=== PATIENT | female | born 1965 | race Caucasian/White ===

== ENCOUNTER 2023-12-07 13:54 | Outpatient (AMB) | payer OTHER, SELFPAY ==
[2023-12-07 14:03] VITALS: BP 124/70; PULSE 76; O2SAT 96; BMI 28.3
--- NOTE | 2023-12-07 14:03 | MHC.OFFVIS ---
Intake Vital Signs 12/07/23 14:03 Height 5 ft 4 in Weight 165 lb BMI 28.3 BP 124/70 Blood Pressure Location Lt brachial Position Sitting Pulse 76 Pulse Source Pulse Oximeter Pulse Oximetry (%) 96 Oxygen Delivery Method Room Air Intake Visit Reasons: Asthma Human Resources Safety Manager Required: No Allergies No Known Allergies Allergy (Verified 12/07/23 14:06) HPI HPI Comments History of Present Illness Details The patient is a 58-year-old woman with a history of childhood asthma but then outgrew. She had been in her usual state health until the last few years when she has noticed some fullness or discomfort on her left side of her chest. it was mild to moderate severity. And weighs 1 there work could be affecting her breathing in addition to the discomfort. She had been evaluated by Dr. Dolan many years ago. Back in 2010 he had her on Symbicort which she responded well at the time. She also had a CT scan of the time demonstrating what appeared to be a cardiac fat pad that was more pronounced. Therefore in view of her discomfort she did have a repeat CT scan sometime in April 2022. It was noted that the fat pad was still present although not significantly changed. In addition to that she was found to have small subcentimeter pulmonary nodules and also found to have some thickening of the distal esophagus. Therefore she was referred to Gastroenterology and the patient will be undergoing endoscopy soon. In addition to that she did have pulmonary function studies which we personally reviewed together. This was done in May 2022. It appears that the patient has a mild obstructive ventilatory defect although bronchodilators were not used to see if this is a reversible obstruction. My suspicion is that it is based on her history in the past with Dr. Dolan. In addition to that the patient did have significant hyperinflation and air trapping likely also related to small airways disease. Explained to the patient that this increased hyperinflation and air trapping could result in that fullness sensation that she feels at times as her lungs are not completely deflated. The symptoms to get worse specially if she is exerting herself and increasing her respiratory rate therefore limiting her lung emptying time. In regards to the pulmonary nodules they are small and will need follow-up a year from her last CT scan sometime in April 2023. 12/07/2023 the patient is here for a pulmonary follow-up visit. Overall the patient has been doing well. Respiratory symptoms have been improved. She has been using the Symbicort with good effect. Has not had to use any prednisone or any other therapies. The patient did have a CT scan of the chest back in April 2023 which we personally reviewed. Appears that has stable pulmonary nodules and have not changed. Will benefit from following up for additional 1 year. In the meantime they did mention that if she does have a distal thickened esophagus. She denies any epigastric discomfort reflux disease. Although because of the abnormality which followed up with a barium swallow. Otherwise will follow-up with a CT scan in 1 year's time. If patient has any worsening symptoms she will call for an earlier evaluation [facility] Medical History (Updated 12/07/23 @ 14:24 by Jamie Christine MD) Esophageal thickening Asthma Pulmonary nodules Social History (Updated 12/07/23 @ 14:09 by BREANA Alvarez) Patient Tobacco Use Status: Never used Tobacco Review of Systems Const Denies fever(s) Eyes Denies change in vision ENT Denies change in voice and Denies throat swelling Card Denies chest pain and Denies palpitations Resp Reports cough GI Reports no additional complaints Musc Reports no additional complaints Skin/Breast Denies rash Endo Denies palpitations Samuel/Lymph Denies easy bleeding and Denies easy bruising Aller/Immun Denies throat swelling Physical Exam Vital Signs: Last Vital Signs Pulse 76 12/07/23 14:03 BP 124/70 12/07/23 14:03 Pulse Ox 96 12/07/23 14:03 Oxygen Delivery Method Room Air 12/07/23 14:03 BMI result Body Mass Index 28.3 Const General: comfortable HEENT Head: Yes normal to inspection Eyes General: appearance normal, both eyes and all related structures Neck Neck: Yes trachea midline and Yes supple Chest Chest palpation & inspection: normal inspection of the chest Resp Effort & Inspection: normal respiratory effort Auscultation: clear to auscultation bilaterally Cardio Rate: regular rate Rhythm: regular rhythm Heart sounds: S1 normal heart sound present and S2 normal heart sound present GI Auscultation: normal bowel sounds Skin General skin exam: no rashes or lesions noted Extrem General: Yes no clubbing, cyanosis or edema Assessment & Plan Assessment & Plan (1) Pulmonary nodules: Code(s): R91.8 - Other nonspecific abnormal finding of lung field (2) Asthma: Comment: although demonstrates some mild obstruction we do not have the post bronchodilator measurements. My suspicion is that she would have a reversible of obstruction consistent with asthma. Code(s): J45.909 - Unspecified asthma, uncomplicated Qualifiers: Asthma complication type: uncomplicated Asthma persistence: persistent Asthma severity: moderate Qualified Code(s): J45.40 - Moderate persistent asthma, uncomplicated (3) Esophageal thickening: Code(s): K22.89 - Other specified disease of esophagus Plan continue Symbicort CT chest in 1 year barium swallow F/U 1 year Orders: Orders [place] barium swallow 12/07/23 K21.9 - Gastro-esophageal reflux disease without esophagitis, K22.89 - Other specified disease of esophagus CT chest wo IV con 364 Days R91.8 - Other nonspecific abnormal finding of lung field Medications: Refilled budesonide-formoterol 160-4.5 mcg/actuation (Symbicort) 2 puffs inhalation BID 30 days 10.2 grams 11RF J44.9 - Chronic obstructive pulmonary disease, unspecified Coding Level of Care Code Est Pt Level 4 (08551) Diagnoses Pulmonary nodules R91.8 Moderate persistent asthma without complication J45.40 Asthma complication type: uncomplicated Asthma persistence: persistent Asthma severity: moderate Esophageal thickening K22.89 Time Spent (min) 17
== END 2023-12-07 14:30 | disposition home or self-care (01) ==
PROVIDERS: PCP Nurse Practitioner Family; Visit Provider Hospitalist
DX: R91.8 Other nonspecific abnormal finding of lung field (principal); J45.40 Moderate persistent asthma, uncomplicated; K22.89 Other specified disease of esophagus
CPT/HCPCS: 99214

== ENCOUNTER → 2023-12-07 13:54 | Outpatient (BNVA) | payer BC, SELFPAY | PROVIDERS: PCP Nurse Practitioner Family; Visit Provider Hospitalist ==

== ENCOUNTER 2024-11-04 07:04 | Outpatient (REF) | payer OTHER, SELFPAY ==
--- NOTE | ~2024-11-04 | CT_ITS ---
CLINICAL HISTORY: R91.8 - Other nonspecific abnormal finding of lung field CT chest without contrast Comparison: None Findings: The heart size is normal. Thyroid not well seen. No hilar or mediastinal adenopathy. No chest wall lesions or axillary. Mild circumferential distal esophageal wall thickening, nonspecific. Mild biapical scarring. No dense consolidation, pleural effusion or pneumothorax. 2 mm noncalcified left upper lobe pulmonary nodule along the fissure on image 92 of series 3, likely lymph. The upper abdomen is unremarkable. No acute fractures. IMPRESSION: 1. No acute cardiopulmonary disease. Tiny pulmonary nodule on the left is likely an intrapulmonary lymph node. 2. Mild circumferential wall thickening of the distal esophagus is nonspecific. Correlate for any signs or symptoms of esophagitis. This document has been electronically signed by: Samantha Ricardo MD on 11/04/2024 08:49:12
--- OUTSIDE RECORDS SUMMARY | 2024-11-04 07:08 | XMS_ITS | Clinical Summary ---
Author Organization [facility] [address] [facility] Address [address] [place] [address] Phone Care Team Providers Care Traffic Routing Engineer Name Role Phone [place], Amanda SYED Primary Care Provider Allergies No known active allergies Medications zolpidem (AMBIEN) 5 mg tablet Take 1 tablet (5 mg total) by mouth daily. Max Daily Amount: 5 mg 3 Active omeprazole (PriLOSEC) [address] capsule Take 20 mg by mouth 2 (two) times a day. Active losartan (COZAAR) 100 mg tablet Take 1 tablet (100 mg total) by mouth daily. 3 Active levothyroxine (SYNTHROID, LEVOTHROID) 125 mcg tablet Take 1 tablet (125 mcg total) by mouth daily. 4 07/23/20 25 Active icosapent ethyL (VASCEPA) 1 gram capsule TAKE 2 CAPSULES BY MOUTH IN THE MORNING AND 2 CAPSULES IN THE EVENING. TAKE WITH MEALS. 4 Active Wixela Inhub 250-50 mcg/dose diskus inhaler USE 1 INHALATION EVERY 12 HOURS FOR 30 DAYS 4 Active amLODIPine (NORVASC) 5 mg tablet Take 1 tablet (5 mg total) by mouth daily. 4 Active omeprazole (PriLOSEC) [address] capsuleIndicati ons:Pharyngoeso phageal dysphagia,Ineff ective esophageal motility Take 1 capsule (40 mg total) by mouth 2 (two) times a day. Do not crush or chew. 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 Encounters Date Type Department Care Team Description 10/08/2024 Telephone Gastroenterology - [address] [facility] [address] [place] [phone] Pretty Ponce MD 10/08/2024 Telephone Gastroenterology - [address] [facility] [address] [facility] [address] [place] [phone] Pretty Ponce MD 09/09/2024 Telephone Gastroenterology - [address] [phone] Pretty Ponce MD 08/26/2024 Telephone Gastroenterology - [address] [phone] Pretty Ponce MD from Last 3 Months Surgical History Surgery Date Site/Laterality Comments SECTION, LOW TRANSVERSE x4 HYSTERECTOMY Medical History Medical History Date Comments Hypertension Hypothyroid Lauren thyroiditis Emphysema lung ([facility]) Social History Tobacco Use Types Packs/Day Years Used Date Smoking Tobacco: Never Smokeless Tobacco: Never Tobacco Cessation:Counseling Given: Not Answered Alcohol Use Standard Drinks/Week Comments Not Asked 0 (1 standard drink = 0.6 oz pur e alcohol) social Comments Unknown Sex and Gender Information Value Date Recorded Sex Assigned at Not on file Legal Sex Female 1:38 PM EST Gender Identity Not on file Sexual Orientation Not on file Obstetrics History Last Filed Vital Signs Vital Sign Reading Time Taken Comments Blood Pressure - - Pulse - - Temperature - - Respiratory Rate - - Oxygen Saturation - - Inhaled Oxygen Concentration - - Weight 77.6 kg (171 lb) 07/31/2024 9:44 AM EST Height 162.6 cm (5' 4 ) 07/31/2024 9:44 AM EST Body Mass Index 29.35 07/31/2024 9:44 AM EST Plan of Treatment Upcoming Encounters Date Type Department Care Team (Late st Contact Info) Description 12/13/2024 12:30 PM EDT Appointment [facility] Endoscopy [address] [place] [phone] Pretty Ponce MD [address] [place] [phone] Health Maintenance Due Date Last Done Comments Hepatitis A Vaccines (1 of 2 - Risk 2-dose series) 1983 Pneumococcal Vaccine: 50+ Years (1 of 2 - PCV) 1983 Pneumococcal Vaccine: Pediatrics (0 to 5 Years) and At-Risk Patients (6 to 64 Years) (1 of 2 - PCV) 1983 Cervical Cancer Screening: Pap Smear 1985 HIV Screening 08/02/2022 Hepatitis C Screening 08/02/2022 Social Influencers of Health Screening 08/02/2022 COVID-19 Vaccine ( season) 2024 08/13/2021, 01/28/2021, 01/06/2021 Influenza Vaccine (#1) 2024 05/12/2021, 2019 Hepatitis B Vaccines (1 of 3 - Risk 3-dose series) 2024 RSV Immunization Patients 60+ Years Old (1 - Risk 60-74 years 1-dose series) 2024 Hypertension/CHF/CAD Annual BMP Blood Test 07/31/2024 Depression Screening 07/23/2025 07/23/2024 Breast Cancer Screening 09/18/2025 09/18/19 24, 09/24/2021, 08/25/2020, Additional history exists Cholesterol Screening (Lipid Panel) 07/16/2029 07/16/2024 DTaP,Tdap,and Td Vaccines (4 - Td or Tdap) 05/01/2034 05/01/2024, 12/15/2016, 07/21/2015 Colorectal Cancer Screening: Colonoscopy 08/09/2034 08/09/2024 Zoster Vaccines Completed 05/01/2024, 03/05, 11/21/2017 HIB Vaccines Aged Out No longer eligi ble based on patient's age to complete this topic HPV Vaccines Aged Out No longer eligi ble based on patient's age to complete this topic IPV Vaccines Aged Out No longer eligi ble based on patient's age to complete this topic MMR Vaccines Aged Out No longer eligi ble based on patient's age to complete this topic Meningococcal ACWY Vaccine Aged Out N o longer eligible based on patient's age to complete this topic Meningococcal B Vacine Aged Out No lo nger eligible based on patient's age to complete this topic RSV Immunization Patients Under 20 months Aged Out No longer eligible based on patient's age to complete this topic Varicella Vaccines Aged Out No longer eligible based on patient's age to complete this topic Procedures Procedure Name Priority Date/Time Associated Diagnosis Comments COLONOSCOPY Routine 08/09/2024 9:26 AM EST ALEXANDER SCREENING DIGITAL Routine 09/18/2023 12:24 PM EST Encounter for screening mammogram for malignant neoplasm of breast from Last 3 Months or Most Recently Relevant to Health Maintenance Results * COLONOSCOPY (08/09/2024 9:26 AM EST) Anatomical Region Laterality Modality Endoscopy us Historical Provider GI~PROCEDURE ORDERABLES F inal Result * ALEXANDER SCREENING DIGITAL (09/18/2023 12:24 PM EST) Anatomical Region Laterality Modality Mammography 09/18/2023 11:0 1 AM EST Narrative 09/18/2023 12:24 PM EST [facility] Diagnostic Imaging Department [address] [place], [place] [id number] Patient: ??KRISTA ALVARES ?/Age/Sex: 1965 58 - F Unit#: ??[id number] ? Location/Status: ??SPDIMAM/REG CLI ? Mnemonic/Ordering Site: ??DIGSC/SPMAM Ordering Physician: ??MIGUEL BENZ MD [facility] Screening Digital - 09/18/23 - 1115 Report Status:Signed EXAM: [facility] Screening Digital EXAM DATE AND TIME: 09/18/2023 11:16 AM HISTORY: ??Annual screening COMPARISON: ??Multiple exams dating back to 2017 TECHNIQUE: Bilateral digital breast tomosynthesis was performed in the CC and MLO projections. Computer aided detection with [employer] 3D 3.1 was employed. TISSUE DENSITY: b. There are scattered areas of fibroglandular density. FINDINGS: No suspicious masses, grouped microcalcifications, or areas of architectural distortion are seen. The skin and vascularity are unremarkable. IMPRESSION: Stable mammographic appearance of the breasts. ??No evidence of malignancy is seen. A negative mammogram in the presence of a clinically suspicious palpable abnormality does not preclude the possibility of malignancy or alter the indications for biopsy. BI-RADS: ??Category 1: Negative RECOMMENDATION(S): 1: Routine screening mammogram BILATERAL in 1 year. 3341F, 7025F Dictating Physician: ??ELIEZER RASHEED MD Electronically Signed by: ??ELIEZER RASHEED MD Dic Date/Time: ??09/18/23 1223 Sign date/Time: ??09/18/23 1224 Procedure Note Eliezer Rasheed MD - 04/22/2024 [facility] Diagnostic Imaging Department [address] [place] [address] Patient: KRISTA ALVARESO.B./Age/Sex: 1965 - 58 - F Unit#: [id number] Location/Status: SPDIMAM/REG CLI Mnemonic/Ordering Site: DIGSC/SPMAM Ordering Physician: MIGUEL BENZ MD [facility] Screening Digital - 09/18/23 - 1115 Report Status:Signed EXAM: [facility] Screening Digital EXAM DATE AND TIME: 09/18/2023 11:16 AM HISTORY: Annual screening COMPARISON: Multiple exams dating back to 2017 TECHNIQUE: Bilateral digital breast tomosynthesis was performed in the CCand MLO projections. Computer aided detection with [employer] 3D 3.1was employed. TISSUE DENSITY: b. There are scattered areas of fibroglandular density. FINDINGS: No suspicious masses, grouped microcalcifications, or areas ofarchitectural distortion are seen. The skin and vascularity are unremarkable. IMPRESSION: Stable mammographic appearance of the breasts. No evidence of malignancyis seen. A negative mammogram in the presence of a clinically suspicious palpable abnormality does not preclude the possibility of malignancy or alter the indications for biopsy. BI-RADS: Category 1: Negative RECOMMENDATION(S): 1: Routine screening mammogram BILATERAL in 1 year. 3341F, 7025F Dictating Physician: ELIEZER RASHEED MD Electronically Signed by: ELIEZER RASHEED MD Dic Date/Time: 09/18/23 1223 Sign date/Time: 09/18/23 1224 Miguel Benz MD IMG BI PROCEDURES Final Result from Last 3 Months or Most Recently Relevant to Health Maintenance Insurance [employer] Care Teams Traffic Routing Engineer Relationship Specialty Start Date End Date Amanda Hollins NP PCP - General Internal Medicine 06/27/24
--- OUTSIDE RECORDS SUMMARY | 2024-11-04 07:08 | XMS_ITS | Encounter Summary ---
Author Organization [facility] Address [address] [place] [address] Care Team Providers Care Site Promotion Agent Name Role Phone Amanda Hollins NP Primary Care Provider [phone] Encounter Details Date Type Department Care Team ([facility] st Contact Info) Description 10/08/2024 Telephone Gastroenterology - [address] [facility] [address] [place] [phone] Pretty Ponce MD [address] [place] [address] Social History Tobacco Use Types Packs/Day Years Used Date Smoking Tobacco: Never Smokeless Tobacco: Never Alcohol Use Standard Drinks/Week Comments Not Asked 0 (1 standard drink = 0.6 oz pur e alcohol) social Comments Unknown Sex and Gender Information Value Date Recorded Sex Assigned at Not on file Legal Sex Female 1:38 PM EST Gender Identity Not on file Sexual Orientation Not on file documented as of this encounter Progress Notes * Delmi Chapman MA - 10/08/2024 12:04 PM EST SPOKE WITH PT REGARDING OMEPRAZOLE. [employer] WILL NEED TO SEND US A MEDICAL NECESSITY FORM TO FILL OUT. I TRIED DOING PA ON COVER MY MEDS BUT STATES MEMBER NOT FOUND. * Sylvia Burdick MA - 10/08/2024 11:21 AM EST WE NEED TO SEND OVER A MEDICAL NECESSITY FORM [employer] ONLY COVERS 90 PILLS A YEAR,PT NEEDS MORE THAT SHE SHE TAKES OMEPRAZOLE 40 BID documented in this encounter Plan of Treatment Upcoming Encounters Date Type Department Care Team (Late st Contact Info) Description 12/13/2024 12:30 PM EDT Appointment [facility] Endoscopy [address] [place] [phone] Pretty Ponce MD [address] [phone] documented as of this encounter Visit Diagnoses Not on filedocumented in this encounter Care Teams Site Promotion Agent Relationship Specialty Start Date End Date Amanda Hollins NP PCP - General Internal Medicine 06/27/24 documented as of this encounter
--- OUTSIDE RECORDS SUMMARY | 2024-11-04 07:08 | XMS_ITS | Encounter Summary ---
Author Organization [facility] Address [address] [place] [address] Care Team Providers Care Tester Regulator Name Role Phone Amanda Hollins NP Primary Care Provider Encounter Details Date Type Department Care Team ([facility] st Contact Info) Description 10/08/2024 Telephone Gastroenterology - [address] [facility] [address] [place] [phone] Pretty Ponce MD [address] [place] [address] Social History Tobacco Use Types Packs/Day Years [...] Notes * Delmi Chapman MA - 10/08/2024 12:45 PM EST SPOKE WITH PT , [employer] DOES NOT REQUIRE A PA FOR A COLON * Sylvia Burdick MA - 10/08/2024 12:34 PM EST Proc 12/13/24 pt wants to make sure you put in for her proc authorization documented in this encounter Plan of Treatment Upcoming Encounters Date Type Department Care Team (Late st Contact Info) Description 12/13/2024 12:30 PM EDT Appointment [facility] Endoscopy [address] [place] [phone] Pretty Ponce MD [address] [address] documented as of this encounter Visit Diagnoses Not on filedocumented in this encounter Care Teams Tester Regulator Relationship Specialty Start Date End Date Amanda Hollins NP PCP - General Internal Medicine 06/27/24 documented as of this encounter
== END 2024-11-04 07:05 | disposition home or self-care (01) ==
LOC: HO.CT 07:04
PROVIDERS: Visit Provider Hospitalist
DX: R91.8 Other nonspecific abnormal finding of lung field (principal)
CPT/HCPCS: 71250

== ENCOUNTER → 2024-11-04 07:10 | Outpatient (BNV) | payer OTHER, SELFPAY | PROVIDERS: Visit Provider Radiology Diagnostic Radiology | DX: R91.8 Other nonspecific abnormal finding of lung field (principal) | CPT/HCPCS: 71250 ==

== ENCOUNTER 2024-12-12 10:23 | Outpatient (AMB) | payer OTHER, SELFPAY ==
[2024-12-12 10:28] VITALS: BP 136/84; PULSE 76; O2SAT 96; BMI 29.1
--- NOTE | 2024-12-12 10:28 | MHC.OFFVIS ---
Vital Signs 12/12/24 10:28 Height 5 ft 4 in Weight 169 lb 12.095 oz BMI 29.1 BP 136/84 Blood Pressure Location Lt brachial Position Sitting Pulse 76 Pulse Source Pulse Oximeter Pulse Oximetry (%) 96 Oxygen Delivery Method Room Air Intake Visit Reasons: asthma Allergies No Known Allergies Allergy (Verified 12/12/24 10:32) HPI Comments Details: The patient is a 59-year-old woman with a history of childhood asthma but then outgrew. She had been in her usual state health until the last few years when she has noticed some fullness or discomfort on her left side of her chest. it was mild to moderate severity. And weighs 1 there work could be affecting her breathing in addition to the discomfort. She had been evaluated by Dr. Dolan many years ago. Back in 2010 he had her on Symbicort which she responded well at the time. She also had a CT scan of the time demonstrating what appeared to be a cardiac fat pad that was more pronounced. Therefore in view of her discomfort she did have a repeat CT scan sometime in April 2022. It was noted that the fat pad was still present although not significantly changed. In addition to that she was found to have small subcentimeter pulmonary nodules and also found to have some thickening of the distal esophagus. Therefore she was referred to Gastroenterology and the patient will be undergoing endoscopy soon. In addition to that she did have pulmonary function studies which we personally reviewed together. This was done in May 2022. It appears that the patient has a mild obstructive ventilatory defect although bronchodilators were not used to see if this is a reversible obstruction. My suspicion is that it is based on her history in the past with Dr. Dolan. In addition to that the patient did have significant hyperinflation and air trapping likely also related to small airways disease. Explained to the patient that this increased hyperinflation and air trapping could result in that fullness sensation that she feels at times as her lungs are not completely deflated. The symptoms to get worse specially if she is exerting herself and increasing her respiratory rate therefore limiting her lung emptying time. In regards to the pulmonary nodules they are small and will need follow-up a year from her last CT scan sometime in April 2023. 12/07/2023 the patient is here for a pulmonary follow-up visit. Overall the patient has been doing well. Respiratory symptoms have been improved. She has been using the Symbicort with good effect. Has not had to use any prednisone or any other therapies. The patient did have a CT scan of the chest back in April 2023 which we personally reviewed. Appears that has stable pulmonary nodules and have not changed. Will benefit from following up for additional 1 year. In the meantime they did mention that if she does have a distal thickened esophagus. She denies any epigastric discomfort reflux disease. Although because of the abnormality which followed up with a barium swallow. Otherwise will follow-up with a CT scan in 1 year's time. If patient has any worsening symptoms she will call for an earlier evaluation 12/12/2024 the patient is here for a pulmonary follow-up visit. Overall the patient has been doing well from a respiratory status. Denies any cough or shortness breath. She does have issues with dyspepsia. She does follow-up with GI. She did undergo a CT scan of the chest that was personally by me. Her pulmonary nodules are small measuring up to 5 mm in size. There are bilateral. There there are little irregular and will require additional follow-up. In addition to that she has a thickened esophagus primarily in the distal part. This suggest the possibility of gastritis. She has had issues with esophageal stenosis in the past and indeed this may be the case. She will be following up with the GI doctor soon. I did bring up the possibility of reflux related disease. She needs to monitor closely her reflux diet and make sure sure that she sleeps elevated. In addition to that she has to be careful with alcohol or any other irritants to the esophagus into the stomach. The patient also has a family history of this. Therefore, she can consider being evaluated before allergic types of esophagitis such as eosinophilic esophagitis. It will be reasonable to at least mentioned it to the GI doctor to see what they feel. Not sure she has had any biopsies demonstrating eosinophilia of her gastric or esophageal mucosa. For now she will continue to monitor closely her symptoms and also start a reflux diet. We did briefly talk about the details of that. She should also refrain from eating meals 3 hours before bedtime in sleeping elevated. The patient will return year's time and will repeat a CAT scan prior to the visit to address the pulmonary nodules. [facility] Medical History (Updated 05/16/24 @ 14:43 by Marcy Mosley) Esophageal thickening Asthma Pulmonary nodules Social History Patient Tobacco Use Status: Never used Tobacco Review of Systems Const Denies fever(s) Eyes Denies change in vision ENT Denies change in voice and Denies throat swelling Card Denies chest pain and Denies palpitations Resp Reports cough GI Reports dyspepsia Musc Reports no additional complaints Skin/Breast Denies rash Endo Denies palpitations Samuel/Lymph Denies easy bleeding and Denies easy bruising Aller/Immun Denies throat swelling Physical Exam Vital Signs: Last Vital Signs Pulse 76 12/12/24 10:28 BP 136/84 12/12/24 10:28 Pulse Ox 96 12/12/24 10:28 Oxygen Delivery Method Room Air 12/12/24 10:28 BMI result Body Mass Index 29.1 Const General: comfortable HEENT Head: Yes normal to inspection Eyes General: appearance normal, both eyes and all related structures Neck Neck: Yes trachea midline and Yes supple Chest Chest palpation & inspection: normal inspection of the chest Resp Effort & Inspection: normal respiratory effort Auscultation: clear to auscultation bilaterally Cardio Rate: regular rate Rhythm: regular rhythm Heart sounds: S1 normal heart sound present and S2 normal heart sound present GI Auscultation: normal bowel sounds Skin General skin exam: no rashes or lesions noted Extrem General: Yes no clubbing, cyanosis or edema Results Reviewed Results Reviewed: [place] [address] CT Scan Report Signed Patient: Krista Alvares MR#: [id number] : 1965 Acct:[id number] Age/Sex: 59 / F ADM Date: 11/04/24 Loc: HO.CT Attending Dr: Jamie Christine MD Ordering Physician: Jamie Christine MD Date of Service: 11/04/24 Procedure(s): CT chest wo IV con Accession Number(s): [id number] cc: Jamie Chrsitine MD~ Report Number: [id number]: Total DLP = 147.00 mGy-cm CLINICAL HISTORY: R91.8 - Other nonspecific abnormal finding of lung field CT chest without contrast Comparison: None Findings: The heart size is normal. Thyroid not well seen. No hilar or mediastinal adenopathy. No chest wall lesions or axillary. Mild circumferential distal esophageal wall thickening, nonspecific. Mild biapical scarring. No dense consolidation, pleural effusion or pneumothorax. 2 mm noncalcified left upper lobe pulmonary nodule along the fissure on image 92 of series 3, likely lymph. The upper abdomen is unremarkable. No acute fractures. IMPRESSION: 1. No acute cardiopulmonary disease. Tiny pulmonary nodule on the left is likely an intrapulmonary lymph node. 2. Mild circumferential wall thickening of the distal esophagus is nonspecific. Correlate for any signs or symptoms of esophagitis. This document has been electronically signed by: Smaantha Ricardo MD on 11/04/2024 08:49:12 Dictated By: Samantha Ricardo MD Signed By: <Electronically signed by Samantha Ricardo MD in [place]> 11/04/24 0850 DD/ TD/TT: 11/04/24848 Corporate Consultant: Assessment & Plan Assessment & Plan (1) Pulmonary nodules: Code(s): R91.8 - Other nonspecific abnormal finding of lung field Category: Medical (2) Asthma: Comment: although demonstrates some mild obstruction we do not have the post bronchodilator measurements. My suspicion is that she would have a reversible of obstruction consistent with asthma. Code(s): J45.909 - Unspecified asthma, uncomplicated Category: Medical Qualifiers: Asthma severity: moderate Asthma persistence: persistent Asthma complication type: uncomplicated Qualified Code(s): J45.40 - Moderate persistent asthma, uncomplicated (3) Esophageal thickening: Code(s): K22.89 - Other specified disease of esophagus Category: Medical Plan continue Symbicort CT chest in 1 year GI evaluation. ?reflux related versus allergic (eosinophilic esophagitis) F/U 1 year Orders: Orders CT chest wo IV con 1 Year R91.8 - Other nonspecific abnormal finding of lung field Coding Level of Care Code Est Pt Level 4 (62582) Diagnoses Pulmonary nodules R91.8 Moderate persistent asthma without complication J45.40 Asthma severity: moderate Asthma persistence: persistent Asthma complication type: uncomplicated Esophageal thickening K22.89 Time Spent (min) 17
--- OUTSIDE RECORDS SUMMARY | 2024-12-12 12:16 | XMS_ITS | Clinical Summary ---
Author Organization [facility] [address] [facility] Address [address] [place] [address] Phone Care Team Providers Care Program Manager Name Role Phone Igor Hollinselias SYED Primary Care Provider [phone] Allergies Active Allergy Reactions Criticality Noted Date Comments Lisinopril Cough 12/05/2024 Medications zolpidem (AMBIEN) 5 mg tablet Take 1 tablet (5 mg total) by mouth daily. 3 Active losartan (COZAAR) 100 mg tablet Take 1 tablet (100 mg total) by mouth daily. 3 Active levothyroxine (SYNTHROID, LEVOTHROID) 125 mcg tablet Take 1 tablet (125 mcg total) by mouth daily. 4 025 Active icosapent ethyL (VASCEPA) 1 gram capsule [...] 4 Active omeprazole (PriLOSEC) [address] Chamorro ions:Pharyngoe sophageal dysphagia,Inef fective esophageal motility Take 1 capsule (40 mg total) by mouth 2 (two) times a day. Do not crush or chew. 180 each 3 4 025 Active polyethylene glycol (Golytely) 236-22.74-6.74 -5.86 gram solution Take 4L by mouth once for one dose. May substitue any PEG. Starting at 6PM the night before your procedure drink 1 8oz glasses at your own pace until you complete half of the gallon. Finish 2nd half of the gallon 5 hours before your procedure. 4000 mL 5 Active bisacodyL (DULCOLAX) 5 mg EC tablet Take 2 tablets by mouth right before beginning bowel prep. See instructions provided by the office 2 tablet 5 Active meloxicam (MOBIC) 15 mg tablet Take 1 tablet (15 mg total) by mouth. 3 Active omeprazole (PriLOSEC) [address] capsule Take 20 mg by mouth 2 (two) times a day. 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 Encounters Date Type Department Care Team Description 10/08/2024 Telephone Gastroenterology - [address] [phone] Pretty Ponce MD 10/08/2024 Telephone Gastroenterology - [address] [phone] Pretty Ponce MD from Last 3 Months Surgical History Surgery Date Site/Laterality Comments SECTION, LOW TRANSVERSE x4 HYSTERECTOMY Medical History Medical History Date Comments Hypertension Hypothyroid Lauren thyroiditis Emphysema lung ([facility] V24, [facility] V28) Social History Tobacco Use Types Packs/Day Years [...] - Inhaled Oxygen Concentration - - Weight 74.8 kg (165 lb) 12/05/2024 1:00 PM EDT Height 162.6 cm (5' 4 ) 12/05/2024 1:00 PM EDT Body Mass Index 28.32 12/05/2024 1:00 PM EDT Plan of Treatment Upcoming Encounters Date Type Department Care Team (Late st Contact Info) Description 12/13/2024 12:30 PM EDT Hospital Encounter [facility] Endoscopy [address] [place] [phone] Pretty Ponce MD [address] [address] Lyndsey Fitzgerald CRNA [address] [place] [phone] Ketty Stewart MD [address] [place], [place] [phone] Health Maintenance Due Date Last Done Comments [...] Vaccine ( season) 2024 08/13/2021, 01/28/2021, 01/06/2021 Hepatitis B Vaccines (1 of 3 - Risk 3-dose series) 2024 RSV Immunization Adult Patients (1 - Risk 60-74 years 1-dose series) 2024 Hypertension/CHF/CAD Annual BMP Blood Test 07/31/2024 Influenza Vaccine (Season Ended) 2025 05/12/2021, 05/29/2020 Depression Screening 07/23/2025 07/23/2024 Breast Cancer Screening [...] age to complete this topic Meningococcal B Vaccine Aged Out No l onger eligible based on patient's age to complete this topic RSV Immunization Patients Under 20 months Aged Out No longer eligible based on patient's age to complete this topic Varicella Vaccines Aged Out No longer eligible based on patient's age to complete this topic Procedures Procedure Name Priority Date/Time Associated Diagnosis Comments COLONOSCOPY Routine 08/09/2024 9:26 AM EST ANN SCREENING DIGITAL Routine 09/18/2023 12:24 PM EST Encounter for screening mammogram for malignant neoplasm of breast from Last 3 Months or Most Recently Relevant to Health Maintenance Results * COLONOSCOPY (08/09/2024 9:26 AM EST) Anatomical Region Laterality Modality Endoscopy us Historical Provider GI~PROCEDURE ORDERABLES F inal Result * ANN SCREENING DIGITAL (09/18/2023 12:24 PM EST) Anatomical Region Laterality Modality Mammography 09/18/2023 11:0 1 AM EST Narrative 09/18/2023 12:24 PM EST [facility] Diagnostic Imaging Department [address] [place] [address] Patient: ??SHANKARCARMENKRISTA P ?/Age/Sex: 1965 - 58 - F Unit#: ??[id number] ? Location/Status: ??SPDIMAM/REG CLI ? Mnemonic/Ordering Site: ??DIGSC/SPMAM Ordering Physician: ??MIGUEL BENZ MD [facility] Screening Digital - 09/18/23 - 1115 Report Status:Signed EXAM: [facility] Screening Digital EXAM DATE AND TIME: 09/18/2023 11:16 AM HISTORY: ??Annual screening COMPARISON: ??Multiple exams dating back to 2017 TECHNIQUE: Bilateral digital breast tomosynthesis was performed in the CC and MLO projections. Computer aided detection with [employer] 3D 3.1 was employed. TISSUE DENSITY: b. [...] Procedure Note Eliezer Rasheed MD - 04/22/2024 [facility] Diagnostic Imaging Department [address] [place] [id number] Patient: KRISTA ALVARES /Age/Sex: 1965 - 58 - F Unit#: [id number] Location/Status: [facility] CLI Mnemonic/Ordering Site: [facility] Ordering Physician: MIGUEL BENZ MD [facility] Screening Digital - 09/18/23 - 1115 Report Status:Signed EXAM: [facility] Screening Digital EXAM DATE AND TIME: 09/18/2023 11:16 AM HISTORY: Annual screening COMPARISON: Multiple exams dating back to 2017 TECHNIQUE: Bilateral digital breast tomosynthesis was performed in the CCand MLO projections. Computer aided detection with [employer] 3D 3.1was employed. TISSUE DENSITY: b. There [...] to Health Maintenance Insurance [employer] Care Teams Program Manager Relationship Specialty Start Date End Date Amanda Hollins NP PCP - General Internal Medicine 06/27/24
== END 2024-12-12 11:04 | disposition home or self-care (01) ==
LOC: HO.HPS 10:23
PROVIDERS: PCP Nurse Practitioner Family; Visit Provider Hospitalist
DX: R91.8 Other nonspecific abnormal finding of lung field (principal); J45.40 Moderate persistent asthma, uncomplicated; K22.89 Other specified disease of esophagus
CPT/HCPCS: 99214

== ENCOUNTER → 2024-12-12 10:23 | Outpatient (BNVA) | payer OTHER, SELFPAY | PROVIDERS: PCP Nurse Practitioner Family; Visit Provider Hospitalist ==